=== PATIENT | female | born 1995 | race Caucasian/White ===

== ENCOUNTER 2017-11-05 15:00 | Emergency (ER) | payer SELFPAY ==
[2017-11-05] MEDS ORDERED: FENTANYL CITRATE INJ/PF 100 MCG/2 ML AMPUL IV ONE (15:44)
[2017-11-05] MEDS ORDERED: ONDANSETRON HCL INJ/PF 4 MG/2 ML SDV IV ONE (15:44)
[2017-11-05] MEDS ORDERED: RINGERS SOLUTION,LACTATED 1,000 ML IV ONE (15:45)
--- NOTE | 2017-11-05 15:49 | ER Document Report ---
ED Medical Screen (RME) - General Chief Complaint: Flank Pain Stated Complaint: FLANK PAIN Time Seen by Provider: 11/05/17 15:39 Notes: RAPID MEDICAL EVALUATION DISCLOSURE I have seen this patient as part of a Rapid Medical Evaluation and, if applicable, placed any initially appropriate orders. The patient will be seen and fully evaluated, including a full history and physical exam, by a provider ( in Main ED or Fast Track) when a room becomes available. 22-year-old female here with complaints of bilateral back pain and burning with urination that started early this morning. She was told by the urgent care to come here for possible kidney stones however she does not see any blood in the urine. She denies any prior history of kidney stones or kidney infections. She also complains of some "clitoris swelling". EXAM CTAB Tachycardic CVA tenderness - Related Data Allergies/Adverse Reactions: No Known Allergies Allergy (Verified 12/03/12 18:23) Past Medical History - Social History Frequency of alcohol use: Occasional Drug Abuse: None Renal/ Medical History: Denies: Hx Peritoneal Dialysis Past Surgical History: Reports: Hx Oral Surgery - Immunizations Immunizations up to date: Yes Hx Diphtheria, Pertussis, Tetanus Vaccination: Yes Physical Exam - Vital signs Vitals: Temp Pulse Resp BP Pulse Ox 99.2 F 106 H 20 136/63 H 100 11/05/17 15:11 11/05/17 15:11 11/05/17 15:11 11/05/17 15:11 11/05/17 15:11 Course - Vital Signs Vital signs: Temp Pulse Resp BP Pulse Ox 99.2 F 106 H 20 136/63 H 100 11/05/17 15:11 11/05/17 15:11 11/05/17 15:11 11/05/17 15:11 11/05/17 15:11
[2017-11-05 16:16] LABS: ABSOLUTE MONOCYTES (AUTO) 0.6 10^3/uL (0.1-1.4); ABSOLUTE NEUT (AUTO) 3.2 10^3/uL (1.7-8.2); BASOPHILS % (AUTO) 0.3 % (0-2); EOSINOPHILS % (AUTO) 0.5 % (0-6); HEMATOCRIT 40.2 % (36.0-47.0); HEMOGLOBIN 13.8 g/dL (12.0-15.5); LYMPHOCYTES % (AUTO) 19.8 % (13-45); MEAN CORPUSCULAR HEMOGLOBIN 31.7 pg (27.0-33.4); MEAN CORPUSCULAR HGB CONC 34.3 g/dL (32.0-36.0); MEAN CORPUSCULAR VOLUME 92 fl (80-97); MONOCYTES % (AUTO) 12.3 % (3-13); PLATELET COUNT 213 10^3/uL (150-450); RED BLOOD COUNT 4.35 10^6/uL (3.72-5.28); RED CELL DISTRIBUTION WIDTH 13.6 % (11.5-14.0); SEGMENTED NEUTROPHILS % (AUTO) 67.1 % (42-78); TOTAL CELLS COUNTED % (AUTO) 100 %; WHITE BLOOD COUNT 4.8 10^3/uL (4.0-10.5)
[2017-11-05 16:41] LABS: ALANINE AMINOTRANSFERASE 23 U/L (9-52); ALBUMIN 4.5 g/dL (3.5-5.0); ALKALINE PHOSPHATASE 59 U/L (38-126); ANION GAP 11 (5-19); ASPARTATE AMINO TRANSFERASE 20 U/L (14-36); BILIRUBIN,DIRECT 0.2 mg/dL (0.0-0.4); BILIRUBIN,TOTAL 0.2 mg/dL (0.2-1.3); BLOOD UREA NITROGEN 11 mg/dL (7-20); CALCIUM 9.3 mg/dL (8.4-10.2); CARBON DIOXIDE 25 mmol/L (22-30); CHLORIDE 104 mmol/L (98-107); GLUCOSE 78 mg/dL (75-110); POTASSIUM 3.9 mmol/L (3.6-5.0); SODIUM 140.2 mmol/L (137-145); TOTAL PROTEIN 7.7 g/dL (6.3-8.2)
[2017-11-05 16:49] LABS: APPEARANCE,URINE SLIGHTLY-CLOUDY; BILIRUBIN,URINE NEGATIVE (NEGATIVE); COLOR,URINE YELLOW; GLUCOSE, URINE NEGATIVE (NEGATIVE); KETONES,URINE NEGATIVE (NEGATIVE); LEUKOCYTE ESTERASE,URINE SMALL (NEGATIVE); NITRITE,URINE NEGATIVE (NEGATIVE); PROTEIN,URINE NEGATIVE (NEGATIVE); URINE SPECIFIC GRAVITY 1.028; UROBILINOGEN,URINE NEGATIVE mg/dL (<2.0)
[2017-11-05 18:28] LABS: BACTERIA (WET MOUNT) 3+ BACTERIA SEEN; T.VAGINALIS (WET MOUNT) NO TRICHOMONAS SEEN; YEAST (WET MOUNT) NO YEAST SEEN
[2017-11-05 18:31] LABS: WBCS (WET MOUNT) 1+ WBCS SEEN
[2017-11-05] MEDS ORDERED: LIDOCAINE 1% INJ-PF (10 MG/ML) 30 ML SDV INJ ONE (18:53)
[2017-11-05] MEDS ORDERED: CEFTRIAXONE INJ 250 MG VIAL IM ONE (18:53)
[2017-11-05] MEDS ORDERED: AZITHROMYCIN 250 MG TABLET PO ONE (18:53)
--- NOTE | 2017-11-05 18:59 | ER Document Report ---
ED GI/ - General Chief Complaint: Flank Pain Stated Complaint: FLANK PAIN Time Seen by Provider: 11/05/17 15:39 Mode of Arrival: Ambulatory Information source: Patient Notes: Pt is a 22 year old female who presents to the ER today for right lower back pain that radiates across the entire back x 2 days with rash to her vagina and burning when she urinates. She is worried about STDs. She hasn't noticed any increased vaginal discharge. She denies lower abdominal pain. - Related Data Allergies/Adverse Reactions: No Known Allergies Allergy (Verified 12/03/12 18:23) Past Medical History - General Information source: Patient - Social History Smoking Status: Current Every Day Smoker Frequency of alcohol use: Occasional Drug Abuse: None Family History: Reviewed & Not Pertinent Patient has suicidal ideation: No Patient has homicidal ideation: No Renal/ Medical History: Denies: Hx Peritoneal Dialysis Past Surgical History: Reports: Hx Oral Surgery - Immunizations Immunizations up to date: Yes Hx Diphtheria, Pertussis, Tetanus Vaccination: Yes Review of Systems - Review of Systems Constitutional: No symptoms reported EENT: No symptoms reported Cardiovascular: No symptoms reported Respiratory: No symptoms reported Gastrointestinal: No symptoms reported Genitourinary: See HPI Female Genitourinary: See HPI Musculoskeletal: No symptoms reported Skin: No symptoms reported Hematologic/Lymphatic: No symptoms reported Neurological/Psychological: No symptoms reported Physical Exam - Vital signs Vitals: Temp Pulse Resp BP Pulse Ox 99.2 F 106 H 20 136/63 H 100 11/05/17 15:11 11/05/17 15:11 11/05/17 15:11 11/05/17 15:11 11/05/17 15:11 - Notes Notes: PHYSICAL EXAMINATION: GENERAL: uncomfortable appearing, but in no acute distress. HEAD: Atraumatic, normocephalic. EYES: Pupils equal round and reactive to light, extraocular movements intact, sclera anicteric, conjunctiva are normal. NECK: Normal range of motion, supple without lymphadenopathy LUNGS: CTAB and equal. No wheezes rales or rhonchi. HEART: Regular rate and rhythm without murmurs ABDOMEN: Soft, no tenderness. No guarding, no rebound BACK: no vertebral tenderness, normal ROM pelvic: no rash, yellow/green discharge in vaginal canal, normal tenderness to exam, no CMT or adnexal tenderness GI/: no CVA tenderness EXTREMITIES: Normal range of motion, no pitting edema. No cyanosis. NEUROLOGICAL: Cranial nerves grossly intact. Normal sensory/motor exams. PSYCH: Normal mood, normal affect. SKIN: Warm, Dry, normal turgor, no rashes or lesions noted Course - Re-evaluation Re-evalutation: 11/05/17 21:59 pt treated for gonorrhea/chlamydia with rocephin and azithromycin, started on flagyl for bacteria seen on wet mount. some WBC on urinalysis, will send for culture. I believe this is from the bacterial vaginosis, but she did receive a rocephin injection today and will be placed on flagyl for BV. - Vital Signs Vital signs: Temp Pulse Resp BP Pulse Ox 99.1 F 77 16 103/65 99 11/05/17 20:08 11/05/17 20:08 11/05/17 20:08 11/05/17 20:08 11/05/17 20:08 - Laboratory Result Diagrams: 11/05/17 15:55 11/05/17 15:55 Laboratory results interpreted by me: 11/05/17 15:55 Ur Leukocyte Esterase SMALL H Discharge - Discharge Clinical Impression: Bacterial vaginosis Back pain Qualifiers: Back pain location: low back pain Chronicity: acute Back pain laterality: bilateral Sciatica presence: without sciatica Qualified Code(s): M54.5 - Low back pain Condition: Stable Disposition: HOME, SELF-CARE Additional Instructions: Return immediately for any new or worsening symptoms. Follow up with primary care provider, call tomorrow to make followup appointment. Prescriptions: Ketorolac Tromethamine [Toradol 10 mg Tablet] 10 mg PO Q6HP PRN #30 tablet PRN Reason: Metronidazole [Flagyl 500 mg Tablet] 500 mg PO BID #14 tablet
[2017-11-05] MEDS ORDERED: KETOROLAC TROMETHAMINE INJ/PF 30 MG/1 ML SDV IV ONE (19:07)
[2017-11-05 19:49] LABS: CHLAM PCR NOT DETECTED (NOT DETECT); GON PCR NOT DETECTED (NOT DETECT)
[2017-11-05 20:09] VITALS: BP 103/65
== END 2017-11-05 20:10 | disposition home or self-care (01) ==
LOC: ER 15:00
DX: N76.0 Acute vaginitis (principal); B96.89 Other specified bacterial agents as the cause of diseases classified elsewhere; M54.5 Low back pain; R10.9 Unspecified abdominal pain; F17.200 Nicotine dependence, unspecified, uncomplicated
CPT/HCPCS: 99284; 96372; 96361; 96374; 96375; 36415; 87040; 87086; 87210; 85025; 81025; 87088; 80053; 81001; 87491; 87591; J3010; J3490; J1885; J2405; J7120; J0696

== ENCOUNTER 2017-11-07 21:34 | Emergency (ER) | payer SELFPAY ==
[2017-11-07] MEDS ORDERED: LIDOCAINE 2% JELLY 5 ML TUBE TOP ONE (23:28)
[2017-11-07] MEDS ORDERED: DOXYCYCLINE HYCLATE 100 MG TABLET PO ONE (23:30)
[2017-11-07] MEDS ORDERED: VALACYCLOVIR HCL 500 MG TABLET PO ONE (23:31)
--- NOTE | 2017-11-07 23:46 | ER Document Report ---
ED GI/ - General Chief Complaint: Vaginal Itching Stated Complaint: RASH Time Seen by Provider: 11/07/17 22:40 Mode of Arrival: Ambulatory Information source: Patient Notes: Patient is a 22-year-old female who presents to the ER today for vaginal pain and rash. Patient was seen by myself 2 days ago in the emergency department, diagnosed with bacterial vaginosis on wet mount. Patient was placed on Flagyl and given Rocephin injection in the ER as well as azithromycin dose in the ER for possible gonorrhea and chlamydia. Gonorrhea and Chlamydia were actually negative after patient left the ER and they were resulted. Patient states that she went home, "got much worse" and is back with rash to her vagina with itching , pain. She denies any abnormal vaginal discharge, states that it still rascon to urinate. She has not been able to take the Flagyl. She has been taking the Toradol I gave her which has been helping with the back pain she was having when I saw her. TRAVEL OUTSIDE OF THE [place] IN LAST 30 DAYS: No - Related Data Allergies/Adverse Reactions: No Known Allergies Allergy (Verified 12/03/12 18:23) Past Medical History - General Information source: Patient - Social History Smoking Status: Unknown if Ever Smoked Family History: Reviewed & Not Pertinent Renal/ Medical History: Denies: Hx Peritoneal Dialysis Past Surgical History: Reports: Hx Oral Surgery - Immunizations Immunizations up to date: Yes Hx Diphtheria, Pertussis, Tetanus Vaccination: Yes Review of Systems - Review of Systems Constitutional: No symptoms reported EENT: No symptoms reported Cardiovascular: No symptoms reported Respiratory: No symptoms reported Gastrointestinal: No symptoms reported Genitourinary: No symptoms reported Female Genitourinary: See HPI Musculoskeletal: No symptoms reported Skin: No symptoms reported Hematologic/Lymphatic: No symptoms reported Neurological/Psychological: No symptoms reported Physical Exam - Vital signs Vitals: Temp Pulse Resp BP Pulse Ox 98.7 F 62 16 109/59 L 100 11/07/17 22:25 11/07/17 22:25 11/07/17 22:25 11/07/17 22:25 11/07/17 22:25 - Notes Notes: PHYSICAL EXAMINATION: GENERAL: Well-appearing and in no acute distress. HEAD: Atraumatic, normocephalic. EYES: Pupils equal round and reactive to light, extraocular movements intact, sclera anicteric, conjunctiva are normal. NECK: Normal range of motion, supple without lymphadenopathy LUNGS: CTAB and equal. No wheezes rales or rhonchi. HEART: Regular rate and rhythm without murmurs ABDOMEN: Soft, suprapubic tenderness. No guarding, no rebound BACK: no vertebral tenderness, normal ROM GI/: no CVA tenderness, multiple vesicles and ulcers to external genitalia, tender to palpation EXTREMITIES: Normal range of motion, no pitting edema. No cyanosis. NEUROLOGICAL: Cranial nerves grossly intact. Normal sensory/motor exams. PSYCH: Normal mood, normal affect. SKIN: Warm, Dry, normal turgor, no rashes or lesions noted Course - Re-evaluation Re-evalutation: 11/08/17 02:06 Clinically patient has herpes, herpes swab was sent and is pending at this time. Patient placed on Valtrex, urinalysis seems to be worse today with more white blood cells and leukocytes, I will treat with doxycycline. Patient applied lidocaine to the vesicles and ulcers and reports relief. 11/08/17 02:06 - Vital Signs Vital signs: Temp Pulse Resp BP Pulse Ox 98.9 F 72 18 112/59 L 98 11/07/17 23:51 11/07/17 23:51 11/07/17 23:51 11/07/17 23:51 11/07/17 23:51 - Laboratory Laboratory results interpreted by me: 11/07/17 23:19 Urine Protein 30 H Urine Blood SMALL H Ur Leukocyte Esterase SMALL H Discharge - Discharge Clinical Impression: Herpes simplex UTI (urinary tract infection) Qualifiers: Urinary tract infection type: site unspecified Hematuria presence: with hematuria Qualified Code(s): N39.0 - Urinary tract infection, site not specified Condition: Stable Disposition: HOME, SELF-CARE Additional Instructions: Return immediately for any new or worsening symptoms. Follow up with primary care provider, call tomorrow to make followup appointment. Prescriptions: Doxycycline Hyclate 100 mg PO BID #14 capsule Lidocaine 30 gm TP Q2H PRN #1 oint...g. PRN Reason: Valacyclovir HCl [Valtrex 500 Mg Tablet] 1,000 mg PO BID #20 tablet Forms: Return to Work
[2017-11-08 00:15] LABS: AMORPHOUS SEDIMENT,URINE TRACE /HPF; APPEARANCE,URINE CLOUDY; BILIRUBIN,URINE NEGATIVE (NEGATIVE); COLOR,URINE YELLOW; GLUCOSE, URINE NEGATIVE (NEGATIVE); KETONES,URINE NEGATIVE (NEGATIVE); LEUKOCYTE ESTERASE,URINE SMALL (NEGATIVE); NITRITE,URINE NEGATIVE (NEGATIVE); PROTEIN,URINE 30 mg/dL (NEGATIVE); UROBILINOGEN,URINE NEGATIVE mg/dL (<2.0)
[2017-11-08] MEDS ORDERED: HYDROCODONE/ACETAMINOPHEN 5-325 MG (6 TAB/ER DISP) PO PRN (01:12)
[2017-11-08 03:33] VITALS: BP 113/62
== END 2017-11-08 01:18 | disposition home or self-care (01) ==
LOC: ER 21:34
DX: B00.9 Herpesviral infection, unspecified (principal); N39.0 Urinary tract infection, site not specified; R10.2 Pelvic and perineal pain
CPT/HCPCS: 81001; 87250; 99284